=== PATIENT | female | born 1945 | race Caucasian/White ===

== ENCOUNTER 2025-01-21 13:33 | Emergency (ER) | payer OTHER, SELFPAY ==
--- NOTE | 2025-01-21 | ECG_ITS ---
Test Reason : weakness Blood Pressure : */* mmHG Vent. Rate : 60 BPM Atrial Rate : 60 BPM P-R Int : 150 ms QRS Dur : 104 ms QT Int : 426 ms P-R-T Axes : 58 -47 16 degrees QTcB Int : 426 ms Normal sinus rhythm Possible Left atrial enlargement Incomplete right bundle branch block Left anterior fascicular block Minimal voltage criteria for LVH, may be normal variant ( Monument product ) Nonspecific ST and T wave abnormality Abnormal ECG No previous ECGs available Referred By: Generic ED Physician Electronically Signed By: DEVI GARZON MD
--- NOTE | ~2025-01-21 | CT_ITS ---
EXAMINATION: CT HEAD WITHOUT CONTRAST CLINICAL INFORMATION: Mental status change COMPARISON: None available. TECHNIQUE: Contiguous axial imaging was performed from the skull base to vertex without intravenous administration of contrast. This CT examination was performed using dose optimization techniques as appropriate, variously including the following: *Automated exposure control *Adjustment of mA and/or kV according to patient size (this includes techniques or standardized protocols for targeted exams where dose is matched to indication/reason for exam; i.e. extremities or head) *Use of iterative reconstruction technique DLP: 557 mGY*cm FINDINGS: There is no acute ischemic change. Periventricular hypodensities are present. There is moderate global atrophy. There is no intracranial hemorrhage. There is no mass-effect or midline shift. Basal cisterns and ventricles are within normal limits for age/cerebral volume. Small punctate calcification is present in the posterior left globe near the optic nerve. Paranasal sinuses and mastoid air cells are pneumatized. There are no bony abnormalities. CT/CT head/brain wo IV con IMPRESSION: No acute intracranial abnormality. Small punctate calcification is present in the posterior left globe near the optic nerve. Global atrophy and probable chronic small vessel disease. Electronically signed by: Romie Hsieh MD 01/21/2025 03:14 PM EDT RP
[2025-01-21 13:54] VITALS: BP 128/80; PULSE 70; O2SAT 95; BMI 23.9
[2025-01-21 14:05] VITALS: BP 143/56; PULSE 72; RESP 17; TEMP 36.4; O2SAT 95
--- NOTE | 2025-01-21 14:14 | ED.WEAKNESS ---
HPI - Weakness General Chief complaint: Weakness Stated complaint: weakness, dementia Time Seen by Provider: 01/21/25 14:10 Source: patient Mode of arrival: EMS Limitations: altered mental status History of Present Illness ED Provider: Dr. Ras Aleman HPI Narrative: 79-year-old female with a history of dementia, hypertension, diabetes, chronic pain, hypercholesterolemia, osteoporosis who was sent to the emergency department from her adult daycare for evaluation of not able to walk and not acting at her baseline. No other information is available. Initially there were no family members in the emergency department with the patient. The patient's granddaughter did come in the emergency department, she is a patient certified caregiver here in the emergency department. She states that the patient usually gets her nighttime medications that around 18:30 but got her nighttime medications at around 21:00 last night. She states that her grandmother has had similar episodes of mental status change either secondary to getting her medications too late at night or a urinary tract infection. The patient does live with her daughter and son-in-law. She was fine this morning when she went to the adult daycare program and seemed to get ill while she was there. Related Data Previous Rx's ?Medication ?Instructions ?Recorded cefuroxime axetil 250 mg tablet 250 mg PO Q12H 5 days #10 tabs 01/21/25 Allergies Allergy/AdvReac Type Severity Reaction Status Date / Time Penicillins Allergy Hives Verified 01/21/25 13:57 Review of Systems Review of Systems: Yes Unobtainable due to mental status PMFSH Past Medical History [facility] Narrative: Social history: Patient lives at home with her daughter and son-in-law. Social History Social History Unable to assess alcohol history related to: Unable to respond Smoked in Last 30 Days: No Use of substances other than those prescribed or required for medical reasons: Unable to respond Advance Directives: Yes Advance Directives Information Provided: No Advance Directives on File: No Physical Exam Vital Signs: Vital Signs: Last Vital Signs Temp 97.6 F 01/21/25 14:05 Pulse 57 01/21/25 18:00 Resp 16 01/21/25 18:00 BP 121/48 L 01/21/25 18:00 Pulse Ox 95 01/21/25 18:00 O2 Del Method Room Air 01/21/25 18:00 BMI result Body Mass Index 23.9 Vital signs were normal Exam: General: Awake, alert , nonverbal, not answering questions Head: Normocephalic, atraumatic EENT: PERRL, Lids normal, sclera normal, conjunctiva normal, nose normal , ears normal, throat without erythema or exudates Neck: Supple, no adenopathy Lung: breath sounds symmetric, no wheezing, rales or rhonchi Chest: symmetric movement, nontender Heart: regular rate and rhythm, normal S1, S2 no murmurs or rubs Abdomen: soft, non-tender, nondistended, normal bowel sounds Back: no vertebral tenderness, no CVAT Extremities: no deformities, moves all extremities symmetrically Neuro: Moves extremities symmetrically, exam limited by her being nonverbal Psych: Pleasant, cooperative Medications Administered Discontinued Medications Generic Name Dose Route Start Last Admin Trade Name Freq PRN Reason Stop Dose Admin Ceftriaxone Sodium 1 gm 01/21/25 16:49 01/21/25 17:03 Ceftriaxone Sodium 1 Gm Vial IVPUSH 01/21/25 16:50 1 gm ONCE ONE Administration Sodium Chloride 1,000 mls @ 999 mls/hr 01/21/25 16:49 01/21/25 17:04 Ns IV 01/21/25 17:49 999 mls/hr .Q1H1M STA Administration Medical Decision Making Medical Decision Making MDM Narrative: 79-year-old female with a history of dementia, hypertension, diabetes, chronic pain, hypercholesterolemia, osteoporosis who was sent to the emergency department from her adult daycare for evaluation of not able to walk and not acting at her baseline. No other information is available. Initially there were no family members in the emergency department with the patient. The patient's granddaughter did come in the emergency department, she is a patient certified caregiver here in the emergency department. She states that the patient usually gets her nighttime medications that around 18:30 but got her nighttime medications at around 21:00 last night. She states that her grandmother has had similar episodes of mental status change either secondary to getting her medications too late at night or a urinary tract infection. The patient does live with her daughter and son-in-law. She was fine this morning when she went to the adult daycare program and seemed to get ill while she was there. Vital signs were normal. Exam revealed that she was nonverbal, not responding to verbal stimuli but did respond to painful stimuli, otherwise unremarkable. Differential diagnosis: ?Includes but is not limited to stroke, intracranial bleed, medication related delirium, anemia, electrolyte abnormalities, urinary tract infection Course: 19:09 My independent interpretation of laboratory evaluation as follows: CBC was normal. Chloride elevated 110. BUN elevated 23 with a normal creatinine of 1.26. LFTs were normal. Troponin was detectable but not elevated at 7.1. Urinalysis was positive for leukocyte esterase. Microscopic revealed greater than 50 WBCs, 1+ bacteria and 3-[address] scan of the brain revealed no acute abnormalities. Patient was treated with normal saline IV x1 L and ceftriaxone 1 g IV. The patient appears to be at her baseline and the patient's family does want to take her home which I think would be appropriate especially given her dementia. Patient was started on cefuroxime 250 mg q.12h x5 days. Family he was given printed and verbal instructions and the patient was discharged home in the care. Differential Diagnosis Differential Diagnoses: The differential diagnosis associated with the presentation includes (See above) Admission/Observation Consideration of admission/observation: Escalation of care including admission/observation considered (Yes) Lab Data MDM Lab Attestation statement: I reviewed the patient's lab results. 01/21/25 14:18 01/21/25 15:07 Labs: Lab Results 01/21/25 01/21/25 01/21/25 Range/Units 14:18 15:07 15:25 WBC 7.8 (4.8-10.8) X10*3/uL RBC 4.72 (4.20-5.50) X10*6/uL Hgb 14.6 (12.0-16.0) g/dl Hct 45.5 (37.0-47.0) % MCV 96.4 (80.0-98.0) fL MCH 30.9 (27.0-33.0) pg MCHC 32.1 (31.0-35.0) g/dl RDW 12.7 (11.0-16.0) % Plt Count 172 (160-400) X10*3/uL MPV 11.4 (9.4-12.3) fL Immature Gran % (Auto) 0.4 (0.0-0.4) % Neut % (Auto) 73.6 H (45-73) % Lymph % (Auto) 15.6 L (20-40) % [place] % (Auto) 6.9 (2-11) % Eos % (Auto) 2.7 (0-4) % Baso % (Auto) 0.8 (0-2) % Lymph # (Auto) 1.2 (1.2-4.9) X10*3/uL [place] # (Auto) 0.5 (0.1-1.2) X10*3/uL Eos # (Auto) 0.2 (0.0-0.4) X10*3/uL Baso # (Auto) 0.1 (0.0-0.2) X10*3/uL Abs Immat Gran (auto) 0.03 (0.00-0.03) X10*3/uL Absolute Neuts (auto) 5.7 (2.0-8.3) x10*3/uL Absolute Nucleated RBC 0.000 (0.0-0.012) X10*3/uL Nucleated RBC % (auto) 0.0 (0.0-0.2) /100WBC Sodium 145 (135-145) mmol/L Potassium 5.0 (3.3-5.1) mmol/L Chloride 110 H (96-108) mmol/L Carbon Dioxide 29 (22-29) mmol/L Anion Gap 11 L (12-20) BUN 23 H (9-16) mg/dL Creatinine 1.26 (0.5-1.4) mg/dL Estim Creat Clear Calc 30.9 Estimated GFR 41 Random Glucose 96 (60-115) mg/dL Calcium 9.3 (8.4-10.2) mg/dL Magnesium 2.0 (1.6-2.6) mg/dL Total Bilirubin 0.3 (0.0-1.0) mg/dL AST 26 (5-31) U/L ALT 15 (0-31) U/L Alkaline Phosphatase 58 (39-117) U/L Troponin I High Sens 7.1 (<3.5-17.0) ng/L Total Protein 7.0 (6.5-8.0) g/dL Albumin 3.8 (3.5-5.0) g/dL Urine Color Yellow Urine Appearance Clear Urine pH 5.5 (5.0-9.0) Ur Specific [place] 1.025 (1.005-1.025) Urine Protein Trace (Neg-Trace) mg/dL Urine Glucose (UA) Negative (Negative) mg/dL Urine Ketones Trace (Negative) mg/dL Urine Blood Negative (Negative) Urine Nitrite Negative (Negative) Ur Leukocyte Esterase Moderate (2+) H (Negative) Urine RBC 0-2 (0-2) /HPF Urine WBC >50 H (0-5) /HPF Ur Squamous Epith Cells 3-5 (0-2) /HPF Urine Bacteria Trace (None Seen) Hyaline Casts 3-5 (0-2) /LPF Radiology Impression Discussion of test interpretation with radiology: I have reviewed the radiologist's reading. Radiologist Impression: CT brain without IV contrast IMPRESSION: No acute intracranial abnormality. Small punctate calcification is present in the posterior left globe near the optic nerve. Global atrophy and probable chronic small vessel disease. Electronically signed by: Romie Hsieh MD 01/21/2025 03:14 PM EDT Independent Historian Clinical information obtained from an independent historian. History obtained from or confirmed by: Other (Granddaughter) External Record Review External record reviewed: Inpatient record and Office record Chronic Conditions Patient?s care impacted by: Other (Dementia) Discharge Plan Discharge Clinical Impression: Acute alteration in mental status, Urinary tract infection, Dementia Patient Disposition: Home, Self-Care Instructions: Urinary Tract Infection in Older Adults (ED) Additional Instructions: Your blood work was unremarkable. CT scan of the brain revealed no bleeding in the brain and no evidence for stroke. Your urine does look like you have a urine infection and this may explain your symptoms. You were given ceftriaxone 1 g IV. This has an antibiotic that will last 24 hours. I am prescribing cefuroxime 250 mg pills, take 1 pill every 12 hours for 5 days. Increase your fluid intake to help prevent dehydration. Continue taking your other medications as prescribed by your providers. Follow-up with your doctor in 2 days. Please return to the emergency department if your symptoms get worse or if you develop any symptoms that are concerning to you. Please see the return to daycare note Prescriptions: New cefuroxime axetil 250 mg tablet 250 mg PO Q12H 5 Days Qty: 10 0RF Stand Alone Forms: Work/School Release Print Language: Polish
[2025-01-21 14:22] LABS: MANUAL DIFF FLAG NO
[2025-01-21 14:27] LABS: Hematocrit 45.5 % (37.0-47.0); Hemoglobin 14.6 g/dl (12.0-16.0); Imm Gran Abs Auto 0.03 X10*3/uL (0.00-0.03); Imm Gran Pct Auto 0.4 % (0.0-0.4); Lymphocytes Absolute Auto 1.2 X10*3/uL (1.2-4.9); Mean Corpuscular HGB Conc 32.1 g/dl (31.0-35.0); Mean Corpuscular Hemoglobin 30.9 pg (27.0-33.0); Mean Corpuscular Volume 96.4 fL (80.0-98.0); NRBC Abs Auto 0.000 X10*3/uL (0.0-0.012); NRBC Pct Auto 0.0 /100WBC (0.0-0.2); Platelet Count 172 X10*3/uL (160-400); Red Blood Count 4.72 X10*6/uL (4.20-5.50); White Blood Count 7.8 X10*3/uL (4.8-10.8)
[2025-01-21 14:47] LABS: Troponin-I High Sensitivity 7.1 ng/L (<3.5-17.0)
[2025-01-21 15:29] LABS: Alanine Aminotransferase 15 U/L (0-31); Albumin Level 3.8 g/dL (3.5-5.0); Alkaline Phosphatase 58 U/L (39-117); Anion Gap 11 (12-20); Aspartate Amino Transferase 26 U/L (5-31); Blood Urea Nitrogen 23 mg/dL (9-16); Calcium 9.3 mg/dL (8.4-10.2); Carbon Dioxide 29 mmol/L (22-29); Chloride 110 mmol/L (96-108); Creatinine Clr Calc Pharmacy 30.9; Estimated Glomerular Filt Rate 41; Magnesium 2.0 mg/dL (1.6-2.6); Potassium 5.0 mmol/L (3.3-5.1); Sodium 145 mmol/L (135-145); Total Protein 7.0 g/dL (6.5-8.0)
[2025-01-21 15:33] LABS: Appearance Urine Clear; Glucose Urine UA Negative (Negative); PH 5.5 (5.0-9.0); Specific Gravity - Urine 1.025 (1.005-1.025); UMIC TRIGGER UACC YES
[2025-01-21 15:38] LABS: UACC Culture Trigger YES
--- NOTE | 2025-01-21 15:40 | PC.NURSE ---
Patient is a 79-year-old female with a history of dementia, hypertension, diabetes, chronic pain, hypercholesterolemia, osteoporosis who was sent to the emergency department from her adult daycare for evaluation of not able to walk and not acting at her baseline. Upon arrival, patient appeared to be playing possum noted to be resistive to care. Patient became more alert and cooperative as time progressed. Placed on a legal collector and NSR noted. Respirations even and non-labored. Abdomen soft, non-tender with positive bowel sounds. Positive positive pedal pulses with LE edema noted.
[2025-01-21 16:00] VITALS: BP 138/45; PULSE 63; RESP 13; O2SAT 95
[2025-01-21 18:00] VITALS: BP 121/48; PULSE 57; RESP 16; O2SAT 95
[2025-01-21 19:25] VITALS: BP 121/48; PULSE 57; RESP 16; TEMP 36.7; O2SAT 95
== END 2025-01-21 20:32 | disposition home or self-care (01) ==
PROVIDERS: Emergency Provider Emergency Medicine Emergency Medical Services
DX: R41.82 Altered mental status, unspecified (principal); N39.0 Urinary tract infection, site not specified; I45.10 Unspecified right bundle-branch block; F03.90 Unspecified dementia, unspecified severity, without behavioral disturbance, psychotic disturbance, mood disturbance, and anxiety; R53.1 Weakness; Z79.899 Other long term (current) drug therapy
CPT/HCPCS: 36415; 70450; 80053; 81001; 83735; 84484; 85025; 87086; 93005; 96361; 96374; 99284; 99285; J0696

== ENCOUNTER → 2025-01-21 14:21 | Outpatient (BNV) | payer OTHER, SELFPAY | PROVIDERS: Emergency Provider Emergency Medicine Emergency Medical Services; Visit Provider Radiology Diagnostic Radiology | DX: R41.82 Altered mental status, unspecified (principal) | CPT/HCPCS: 70450 ==

== ENCOUNTER → 2025-01-21 14:59 | Outpatient (BNV) | payer OTHER, SELFPAY | PROVIDERS: Emergency Provider Emergency Medicine Emergency Medical Services; Visit Provider Internal Medicine Cardiovascular Disease | DX: I45.10 Unspecified right bundle-branch block (principal); I44.4 Left anterior fascicular block | CPT/HCPCS: 93010 ==